=== PATIENT | female | born 1970 | race Caucasian/White ===

== ENCOUNTER 2020-12-27 10:48 | Outpatient (CLI) | payer BC, SELFPAY ==
--- NOTE | 2020-12-27 13:02 | PFTS_ITS ---
Date of Study:12/27/20 Date of Dictation: MECHANICS: Forced vital capacity (FVC) is normal. Forced expiratory volume in one second (FEV1) is reduced. FEV1/FVC is reduced. FLOW VOLUME LOOP: Useful at all lung volumes with scooping. LUNG VOLUMES: Total lung capacity (TLC) is increased. Residual volume (RV) is increased. DIFFUSING CAPACITY FOR CARBON MONOXIDE: Normal. INTERPRETATION: The prebronchodilator spirometry is consistent with moderate obstruction. No postbronchodilator spirometry was performed. Lung volumes are consistent with hyperinflation and air trapping. Gas exchange (DLCO) is normal. MTDD
== END 2020-12-27 10:49 | disposition home or self-care (01) ==
LOC: RT 10:57
PROVIDERS: PCP Family Medicine; Visit Provider Physician Assistant
DX: R06.02 Shortness of breath (principal)
CPT/HCPCS: 94010; 94726; 94729